=== PATIENT | male | born 1965 | race Caucasian/White ===

== ENCOUNTER → 2018-01-30 | Outpatient (CLI) | payer OTHER ==
--- NOTE | 2018-01-30 11:21 | PCVCIMAG ---
APPROVED REPORT Study performed: 01/30/2018 09:31:24 Exam: Stress Echocardiogram Indication: Hypertension, Jaw pain Patient Location: Echo lab Stress Nurse: Marci Nava RN Status: routine Ht: 5 ft 11 in HR: 100 bpm BP: 120/80 mmHg Rhythm: NSR Medical History Medical History: HTN Procedure The patient underwent an Exercise Stress Test using the Haseeb Protocol. Blood pressure, heart rate, and EKG were monitored. An Echocardiogram was performed by urinalysis technician in four stages in quad fashion. At peak stress, four selected images were obtained and placed side by side with resting images for comparison. Stress Test Details Stress Test: Exercise stress testing was performed using a Haseeb protocol. HR Resting HR: 100 bpmMax Heart Rate (APMHR): 169 bpm Max HR Achieved: 181 bpmTarget HR (85% APMHR): 143 bpm % of APMHR: 107 HR response to stress: Normal HR response to stress BP Resting BP: 120/80 mmHg Max BP: 180/80 mmHg ECG Resting ECG: Sinus Rhythm Stress ECG: Sinus Rhythm Recovery ECG: Sinus Rhythm Clinical Reason for Termination: Maximal effort Exercise duration: 9 min sec Highest Stage Achieved: Stage 3: 3.4 mph at 14% grade. Exercise capacity: 10.10 METs Overall Exercise Capacity for Age: Average Pre-Stress Echo The resting Echocardiogram showed normal left ventricular contractility with an estimated Ejection Fraction of about 55-60%. Normal wall motion in all segments on baseline images. Post-Stress Echo The stress Echocardiogram showed normal left ventricular contractility with an estimated Ejection Fraction of about 65-70%. Normal augmentation of wall motion in all segments on post stress images. Clinical No clinical or ECG evidence for ischemia. Conclusion Clinical Response: Non-ischemic Exercise Capacity: Average Stress ECG Response: Non-ischemic Stress Echo Images: Non-ischemic The left ventricle is normal in size and wall thickness in both the rest and stress images. Mild concentric left ventricular hypertrophy. Other Information Study Quality: Good <Conclusion> The left ventricle is normal in size and wall thickness in both the rest and stress images. Mild concentric left ventricular hypertrophy.
== END | disposition home or self-care (01) ==
LOC: PCVCIMAG 12:18
PROVIDERS: ATTEND Internal Medicine Cardiovascular Disease
DX: I51.7 Cardiomegaly (principal); I10 Essential (primary) hypertension
CPT/HCPCS: 93325; 93351